=== PATIENT | male | born 1940 | race Caucasian/White ===

== ENCOUNTER 2021-07-18 06:18 | Day surgery (SDC) | payer MEDICARE, BC ==
[2021-07-13 11:10] VITALS: BMI 30.1
[2021-07-18] MEDS ORDERED: Fentanyl 100 MCG/2 ML VIAL ONE ×2 (08:19→10:15)
[2021-07-18] MEDS ORDERED: Levofloxacin 500 mg/D5W 100 ml Premix Bag ONE (08:24)
[2021-07-18] MEDS ORDERED: ePHEDrine 50 MG/ML VIAL ONE (08:39)
[2021-07-18] MEDS ORDERED: Ondansetron PF 4 MG/2 ML Vial ONE (08:39)
[2021-07-18] MEDS ORDERED: PROPOFOL 200 MG/20 ML VIAL ONE (08:39)
[2021-07-18] MEDS ORDERED: Lidocaine 1% PF 5 ML VIAL ONE (08:39)
[2021-07-18] MEDS ORDERED: Dexamethasone 20 MG/5 ML VIAL ONE (08:39)
[2021-07-18] MEDS ORDERED: Oxybutynin 5 MG TAB ONE (10:06)
[2021-07-18] MEDS ORDERED: Phenazopyridine HCl 100 MG TAB ONE (10:06)
[2021-07-18] MEDS ORDERED: Ketorolac Tromethamine 30 MG/ML VIAL ONE (10:06)
[2021-07-18] MEDS ORDERED: HYDROcodone/Acetaminophen 5/325 mg Tablet ONE (12:05)
== END 2021-07-18 13:34 | disposition home or self-care (01) ==
LOC: SDC 06:18
PROVIDERS: ATTEND Urology
PROC: 0VT08ZZ Resection of Prostate, Via Natural or Artificial Opening Endoscopic (ICD-10-PCS; principal; 2021-07-18)
DX: N40.1 Benign prostatic hyperplasia with lower urinary tract symptoms (principal); N39.41 Urge incontinence; N42.89 Other specified disorders of prostate; I10 Essential (primary) hypertension; E03.9 Hypothyroidism, unspecified; I48.91 Unspecified atrial fibrillation; E78.5 Hyperlipidemia, unspecified; I25.10 Atherosclerotic heart disease of native coronary artery without angina pectoris; E78.00 Pure hypercholesterolemia, unspecified; Z79.01 Long term (current) use of anticoagulants; Z79.82 Long term (current) use of aspirin; Z79.890 Hormone replacement therapy; Z79.899 Other long term (current) drug therapy
CPT/HCPCS: 88305; J1100; J1885; J1956; J2405; J2704; J3010; J3490